=== PATIENT | male | born 1990 | race Caucasian/White ===

== ENCOUNTER 2019-11-17 11:49 | Outpatient (CLI) | payer BC, SELFPAY ==
[2019-11-17 14:54] LABS: Liquefaction Semen Complete in 30 min. (<30 minutes); Semen Progressive Motility 75 % (>32); Semen Viscosity Increased (Not Increa.); Volume Semen 5 mL (1.5-5.0); pH Semen 8.5 (7.2-8.0)
[2019-11-17 14:55] LABS: Semen Immotility 10 %; Semen Morphology Result to Follow; Semen Non-Progressive Motility 15 %; Semen Total Motility 90 (>40% (PM+NP)); Sperm Count 54 Mil/mL (60-150 million/mL)
[2019-11-21 14:41] LABS: Fructose, Semen 158 mg/dL (150-600)
== END 2019-11-17 11:50 | disposition home or self-care (01) ==
DX: Z31.69 Encounter for other general counseling and advice on procreation (principal)
CPT/HCPCS: 82757; 88160; 89320